=== PATIENT | male | born 1950 | race Caucasian/White ===

== ENCOUNTER → 2017-05-16 | Outpatient (CLI) | payer MEDICARE, BC, OTHER ==
[~2017-05-16] MED LIST: ADVAIR 2501 DISK W/D PO; ALBUTEROL17 GM INH; ARICEPT PO; ASPIRIN PO; CERTAGEN PO; CHANTIX PO; DEPAKOTE PO; FISH OIL 1,0001 CAP PO; FOLIC ACID PO; HYOMAX PO; LEXAPRO PO; LISINOPRIL PO; NAMENDA10 MG PO; NITROGYLCERIN IH; NORVASC PO; PLAVIX PO; PRILOSEC PO; SPIRIVA18 MCG INH; TEGRETOL PO; TOPROL XL PO; VIT B-12 PO; VIT E PO; VITAMIN C PO; ZOCOR PO; ZYPREXA PO
--- NOTE | ~2017-05-16 | CT55 ---
[facility] A Service of [facility] RADIOLOGY TEXT RESULTS PATIENT: [facility] UN[facility] #: [id number] AGE: [address]: Canelo Bravo MD SEX: M ORDER DR: [id number] [facility] [address] [place], [place] [address] [id number] O MR#: [id number] Acc #: [id number] NAME: TRIXIE SERRANO : 1950 SEX: M STUDY DATE/TIME: 05/16/2017 14:48 UNIT: [facility] ROOM: STUDY DESCRIPTION: CT Chest W Con Attending Physician: Canelo Bravo M.D. Referring Physician: Canelo Bravo M.D. Ordering Physician: Canelo Bravo M.D. Primary Care Physician: Pedro Blunt M.D. MEDICAL IMAGING REPORT This report is preliminary unless electronic signature is present EXAM CT chest with contrast INDICATION Lung cancer status post radiation therapy. Restaging. Observation for response to therapy. PROCEDURE Unenhanced CT of the chest. This CT exam was performed with one or more of the following radiation dose reduction techniques: automatic exposure control, adjustment of mA and/or kV according to patient size, and iterative reconstruction. COMPARISON 03/08/2017 FINDINGS The mass along the lateral aspect of the left upper lobe measures approximately 1.6 cm. It is much less dense than on the previous study and it previously measured 2.7 x 1.5 cm. Significant emphysema. The pneumothorax shown on the prior study has resolved. No adenopathy. Previous CABG. No acute findings in the included upper abdomen. Cholelithiasis. No aggressive appearing bone lesion. IMPRESSION 1. Interval decrease in size of the left upper lobe mass without complete resolution. Refer to measurements above. 2. Significant emphysema. 3. The pneumothorax shown on the previous study has resolved. [facility] A Service [facility] RADIOLOGY TEXT RESULTS PATIENT: TRIXIE SERRANO LOCATION: [facility] : 52 UNIT #: [id number] AGE: [address]: Canelo Bravo MD SEX: M ORDER DR: Dictated by... Bebeto Martinez M.D. THIS IS AN ELECTRONICALLY VERIFIED REPORT eBbeto Martinez M.D. at 05/18/2017 10:44 AM TRENTON/erinn TD: 05/17/2017 08:46 JOB #: [id number] MEDICAL IMAGING REPORT Page 1 of 1 COPY
[2017-05-16 15:05] LABS: POC - CREATININE 1.65 mg/dL (0.64-1.27)
== END | disposition home or self-care (01) ==
LOC: CCAT 13:07
PROVIDERS: Internal Medicine Medical Oncology
DX: C34.90 Malignant neoplasm of unspecified part of unspecified bronchus or lung (principal); C17.8 Malignant neoplasm of overlapping sites of small intestine; R91.8 Other nonspecific abnormal finding of lung field; J43.9 Emphysema, unspecified
CPT/HCPCS: 71260; 82565; Q9967